=== PATIENT | female | born 1940 | race African-American/Black ===

== ENCOUNTER → 2016-10-07 | Outpatient (CLI) | payer MEDICARE, MEDICAID ==
[2016-10-07 11:16] LABS: CHOLESTEROL 159.32 mg/dL (0-200); Direct HDL 55 mg/dL (>40); TRIGLYCERIDES 91 mg/dL (<150)
[2016-10-07 11:27] LABS: DIRECT LDL 74 mg/dL (<100)
== END ==
LOC: OD 09:05
PROVIDERS: ATTEND Family Medicine
DX: E78.5 Hyperlipidemia, unspecified (principal)
CPT/HCPCS: 36415; 80061

== ENCOUNTER 2017-04-16 06:21 | Emergency (ER) | payer MEDICARE, MEDICAID ==
--- NOTE | 2017-04-16 06:48 | ER Document Report ---
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 No rx at home. No fever. Feels well otherwise. TRAVEL OUTSIDE OF THE [place] IN LAST 30 DAYS: No - Related Data Allergies/Adverse Reactions: No Known Allergies Allergy (Unverified 02/23/14 11:20) Past Medical History - General Information source: Patient, Relative - Son - Social History Smoking Status: Never Smoker Frequency of alcohol use: None Drug Abuse: None Lives with: Family Family History: Hypertension Patient has suicidal ideation: No Patient has homicidal ideation: No - Past Medical History Cardiac Medical History: Reports: Hx Hypertension, Hx Peripheral Vascular Disease Pulmonary Medical History: Denies: Hx Tuberculosis Neurological Medical History: Reports: Hx Cerebrovascular Accident Renal/ Medical History: Denies: Hx Peritoneal Dialysis Psychiatric Medical History: Denies: Hx Depression Past Surgical History: Reports: Hx Orthopedic Surgery - Right [id number] amputation July 2016 - Immunizations Hx Diphtheria, Pertussis, Tetanus Vaccination: No Review of Systems - Review of Systems Constitutional: No symptoms reported EENT: No symptoms reported Cardiovascular: No symptoms reported Respiratory: No symptoms reported Gastrointestinal: No symptoms reported Genitourinary: No symptoms reported Female Genitourinary: No symptoms reported Musculoskeletal: See HPI Skin: No symptoms reported Hematologic/Lymphatic: No symptoms reported Neurological/Psychological: No symptoms reported Physical Exam - Vital signs Vitals: Temp Pulse Resp BP Pulse Ox 98.2 F 93 18 175/71 H 99 04/16/17 06:27 04/16/17 06:27 04/16/17 06:27 04/16/17 06:27 04/16/17 06:27 Interpretation: Normal - General General appearance: Appears well, Alert In distress: None - HEENT Head: Normocephalic, Atraumatic Eyes: Normal Pupils: PERRL Neck: Supple - Respiratory Respiratory status: No respiratory distress Chest status: Nontender Breath sounds: Normal Chest palpation: Normal - Cardiovascular Rhythm: Regular Heart sounds: Normal auscultation Murmur: No - Abdominal Inspection: Normal Distension: No distension Bowel sounds: Normal Tenderness: Nontender. No: Tender Organomegaly: No organomegaly - Back Back: Normal, Nontender - Extremities General upper extremity: Normal inspection, Nontender, Normal color, Normal ROM , Normal temperature General lower extremity: Normal inspection, Nontender, Normal color, Normal ROM , Normal temperature, Normal weight bearing, Other - Right [id number] amputation healed well, not hot, not red, not swollen, positive Doppler right femoral pulse. No: Chad's sign - Neurological Neuro grossly intact: Yes Cognition: Normal Orientation: AAOx4 Philippi Coma Scale Eye Opening: Spontaneous [place] Coma Scale Verbal: Oriented [place] Coma Scale Motor: Obeys Commands Philippi Coma Scale Total: 15 Speech: Normal Motor strength normal: LUE, RUE, LLE, RLE Sensory: Normal - Psychological Associated symptoms: Normal affect, Normal mood - Skin Skin Temperature: Warm Skin Moisture: Dry Skin Color: Normal Course - Re-evaluation Re-evalutation: 04/16/17 07:46 labs OK basically same as previous lab at [facility]. tylenol and heat are helping. - Vital Signs Vital signs: Temp Pulse Resp BP Pulse Ox 98.3 F 70 18 131/59 H 96 04/16/17 07:59 04/16/17 07:59 04/16/17 07:59 04/16/17 07:59 04/16/17 07:59 - Laboratory Result Diagrams: 04/16/17 07:20 04/16/17 07:20 Laboratory results interpreted by me: 04/16/17 04/16/17 07:20 07:20 Hgb 10.6 L Hct 33.1 L MCH 26.6 L RDW 17.0 H Sodium 145.4 H Chloride 111 H BUN 27 H Est GFR ( Amer) 54 L Est GFR (Non-Af Amer) 45 L Discharge - Discharge Clinical Impression: right groin muscle tenderness, phantom foot pain, hx. right AKA Condition: Good Disposition: HOME, SELF-CARE Instructions: Muscle Strain ([facility]), Acetaminophen Additional Instructions: tylenol for pain warm compress to er if worse see dr. spears on monday, he may want to start a type3 of nerve medication to help block the phantom pain copy of labs given to you for dr. spears Please complete the patient satisfaction survey if you get one, and return it.. If you do not receive a survey, then you can go to the [facility] website, [email or web address] and place your comments about your very good care. Thank you very much. It was a pleasure being your medical provider today. Referrals: MICHAEL SPEARS MD [Primary Care Provider] - 04/17/17
[2017-04-16] MEDS ORDERED: ACETAMINOPHEN 325 MG TABLET PO ONE (07:05)
[2017-04-16 07:26] LABS: ABSOLUTE BASOPHILS # (AUTO) 0.1 10^3/uL (0.0-0.2); ABSOLUTE EOSINOPHILS # (AUTO) 0.1 10^3/uL (0.0-0.6); ABSOLUTE LYMPHOCYTES (AUTO) 1.3 10^3/uL (0.5-4.7); ABSOLUTE MONOCYTES (AUTO) 0.6 10^3/uL (0.1-1.4); ABSOLUTE NEUT (AUTO) 4.6 10^3/uL (1.7-8.2); BASOPHILS % (AUTO) 0.8 % (0-2); EOSINOPHILS % (AUTO) 1.8 % (0-6); HEMATOCRIT 33.1 % (36.0-47.0); HEMOGLOBIN 10.6 g/dL (12.0-15.5); HGB HCT DIFFERENCE -1.3; LYMPHOCYTES % (AUTO) 19.9 % (13-45); MEAN CORPUSCULAR HEMOGLOBIN 26.6 pg (27.0-33.4); MEAN CORPUSCULAR VOLUME 83 fl (80-97); MONOCYTES % (AUTO) 8.6 % (3-13); RED BLOOD COUNT 3.98 10^6/uL (3.72-5.28); SEGMENTED NEUTROPHILS % (AUTO) 68.9 % (42-78); WHITE BLOOD COUNT 6.7 10^3/uL (4.0-10.5)
[2017-04-16 07:43] LABS: ALANINE AMINOTRANSFERASE 37 U/L (9-52); ALBUMIN 4.2 g/dL (3.5-5.0); ALKALINE PHOSPHATASE 97 U/L (38-126); ANION GAP 10 (5-19); ASPARTATE AMINO TRANSFERASE 34 U/L (14-36); BILIRUBIN,DIRECT 0.3 mg/dL (0.0-0.4); BILIRUBIN,TOTAL 0.4 mg/dL (0.2-1.3); BLOOD UREA NITROGEN 27 mg/dL (7-20); CALCIUM 9.9 mg/dL (8.4-10.2); CARBON DIOXIDE 24 mmol/L (22-30); CHLORIDE 111 mmol/L (98-107); CREATININE RESULT 1.17 mg/dL (0.52-1.25); GLUCOSE 102 mg/dL (75-110); MAGNESIUM 1.9 mg/dL (1.6-2.3); POTASSIUM 4.8 mmol/L (3.6-5.0); SODIUM 145.4 mmol/L (137-145); TOTAL PROTEIN 7.5 g/dL (6.3-8.2)
[2017-04-16 07:59] VITALS: BP 131/59
== END 2017-04-16 07:59 | disposition home or self-care (01) ==
LOC: ER 06:21
DX: M79.604 Pain in right leg (principal); G54.6 Phantom limb syndrome with pain; Z89.441 Acquired absence of right ankle
CPT/HCPCS: 99283; 36415; 83735; 85025; 80053; A9270

== ENCOUNTER 2019-02-17 23:17 | Emergency (ER) | payer MEDICARE, MEDICAID ==
[2019-02-18] MEDS ORDERED: COLCHICINE 0.6 MG TABLET PO ONE ×2 (01:43→03:36)
--- NOTE | 2019-02-18 01:49 | ER Document Report ---
ED General - General Chief Complaint: Foot Pain Stated Complaint: LEFT FOOT PAIN, SWELLING Time Seen by Provider: 02/18/19 01:36 Primary Care Provider: MICHAEL SPEARS MD [COMMUNITY BASED STAFF] - Follow up as needed Notes: Patient is a 78-year-old female who presents with complaint of pain over her left first metatarsophalangeal joint with some swelling and redness. Initially started a week ago but has become almost unbearable. She does not have a history of gout. No history diabetes. She does have history of vascular insufficiency in her right leg and therefore had a below the knee amputation. No known history of insufficiency in the left leg. No recent fevers. No vomiting. No other complaints at this time. TRAVEL OUTSIDE OF THE [place] IN LAST 30 DAYS: No - Related Data Allergies/Adverse Reactions: No Known Allergies Allergy (Unverified 02/23/14 11:20) Past Medical History - Social History Smoking Status: Never Smoker Chew tobacco use (# tins/day): Yes Frequency of alcohol use: None Drug Abuse: None Family History: Hypertension Patient has suicidal ideation: No Patient has homicidal ideation: No - Past Medical History Cardiac Medical History: Reports: Hx Hypertension, Hx Peripheral Vascular Disease Pulmonary Medical History: Denies: Hx Tuberculosis Neurological Medical History: Reports: Hx Cerebrovascular Accident Renal/ Medical History: Denies: Hx Peritoneal Dialysis Psychiatric Medical History: Denies: Hx Depression Past Surgical History: Reports: Hx Orthopedic Surgery - Right [id number] amputation July 2016 - Immunizations Hx Diphtheria, Pertussis, Tetanus Vaccination: No Review of Systems - Review of Systems Notes: My Normal Review Basic REVIEW OF SYSTEMS: CONSTITUTIONAL : Denies fever, chills, or sweats. Denies recent illness. RESPIRATORY: Denies cough, cold, or chest congestion. Denies shortness of breath, difficulty breathing, or wheezing. GASTROINTESTINAL: Denies abdominal pain. Denies nausea, vomiting, or diarrhea. Denies constipation. Last BM: MUSCULOSKELETAL: Left foot pain. SKIN: Denies rash or skin lesions. NEUROLOGICAL: Denies sensory or motor loss. ALL OTHER SYSTEMS REVIEWED AND NEGATIVE. Physical Exam - Vital signs Vitals: Temp Pulse Resp BP Pulse Ox 98.1 F 90 16 160/72 H 99 02/17/19 23:46 02/17/19 23:46 02/17/19 23:46 02/17/19 23:46 02/17/19 23:46 - Notes Notes: General Appearance: Well nourished, alert, cooperative, no acute distress, no obvious discomfort. Vitals: reviewed, See vital signs table. Extremities: She has slight redness and swelling that is mainly over the first metatarsophalangeal joint of the left foot. No crepitance. No pain into the ankle or lower leg. Patient is very good dorsalis pedis and posterior tibial pulses. Good capillary refill. Skin: warm, dry, appropriate color, no rash Neuro: speech clear, oriented x 3, normal affect, responds appropriately to questions. Course - Re-evaluation Re-evalutation: 02/18/19 03:44 Patient's foot does appear likely to be consistent with gout. I stated 6 redness and swelling is mainly over the first MTP. It is also possible she could have a mild cellulitis of the foot. Being that she is of older age of feel that its appropriate to try to cover for potential infection as well. She is not diabetic. She has good pulses in the foot. She does not have any signs of vascular insufficiency at this time and I look at her foot or leg. I did give her a dose of colchicine here. I did check her kidney function is normal and therefore we will place her on indomethacin for the next few days. Also placed on Keflex in case there is a cellulitic component to the swelling in her foot. Encouraged her follow-up with her doctor 2 days for reevaluation. I encouraged him to return to ER immediately if she has increasing swelling, spreading redness, or if she has any concerns whatsoever. Patient and family agree with plan and patient will be discharged home. Dictation of this chart was performed using voice recognition software; therefore, there may be some unintended grammatical errors. - Vital Signs Vital signs: Temp Pulse Resp BP Pulse Ox 98.1 F 90 16 160/72 H 99 02/17/19 23:46 02/17/19 23:46 02/17/19 23:46 02/17/19 23:46 02/17/19 23:46 - Laboratory Result Diagrams: 02/18/19 02:36 Laboratory results interpreted by me: 02/18/19 02:36 BUN 21 H Est GFR (Non-Af Amer) 55 L Discharge - Discharge Clinical Impression: Foot pain, left Condition: Good Disposition: HOME, SELF-CARE Additional Instructions: Based on your exam I suspect you probably have gout. Infection of the foot can also show some similar findings. It can sometimes be difficult to tell the difference between the two. We therefore will treat you for both. Gout is caused by collection of uric acid crystals that settle in the joint of the foot and then cause pain and swelling and slight redness. We have given you the first treatment for gout which is a medicine called colchicine. The next treatment is a medicine for pain and inflammation called indomethacin. We will also place you on Keflex to help cover for the possibility of infection. Please take these medicines as prescribed. Indomethacin is a type of NSAID and therefore you should not take ibuprofen or Motrin or Advil when taking this medicine. Please follow-up with your doctor on Monday for reevaluation. Return to the ER immediately if you have increasing swelling, spreading redness, fevers, or if you feel that you are worsening in any way. Prescriptions: Cephalexin Monohydrate [Keflex 500 mg Capsule] 500 mg PO TID #21 capsule Indomethacin [Indocin 50 mg Capsule] 50 mg PO BID #14 capsule Referrals: MICHAEL SPEARS MD [COMMUNITY BASED STAFF] - 02/19/19
--- NOTE | 2019-02-18 03:21 | RADIOLOGY REPORT (SQ) ---
EXAM DESCRIPTION: XR FOOT 3 OR MORE VIEWS COMPLETED DATE/TME: 02/18/2019 00:00 CLINICAL HISTORY: 78 years Female, unable to bear weight COMPARISON: None. Findings: Mild osteoarthritis. Bones, joints, and soft tissues of the LEFT XR FOOT 3 OR MORE VIEWS appear otherwise unremarkable. IMPRESSION: No acute findings.
[2019-02-18 03:29] LABS: ANION GAP 12 (5-19); BLOOD UREA NITROGEN 21 mg/dL (7-20); CARBON DIOXIDE 27 mmol/L (22-30); CHLORIDE 106 mmol/L (98-107); GLUCOSE 107 mg/dL (75-110); SODIUM 144.6 mmol/L (137-145)
[2019-02-18] MEDS ORDERED: INDOMETHACIN 50 MG CAPSULE PO ONE (03:38)
[2019-02-18] MEDS ORDERED: CEPHALEXIN 500 MG CAPSULE PO ONE (03:38)
[2019-02-18 03:57] VITALS: BP 148/66
== END 2019-02-18 03:56 | disposition home or self-care (01) ==
LOC: ER 23:17
DX: M25.572 Pain in left ankle and joints of left foot (principal); M25.475 Effusion, left foot; L53.9 Erythematous condition, unspecified; I10 Essential (primary) hypertension; Z86.79 Personal history of other diseases of the circulatory system
CPT/HCPCS: 99283; 36415; 80048; 73630; A9270 ×3; J3490